=== PATIENT | female | born 1980 | race American Indian/Alaskan Native ===

== ENCOUNTER 2016-09-19 10:34 | Day surgery (SDC) | payer MEDICAID ==
[~2016-09-19 10:34] MED LIST: MARCAINE 0.5% INFILTRATI ONE; NACL 0.9% IR ONE
--- NOTE | 2016-09-19 10:49 | Short Stay Summary ---
Short Stay Documentation Date of service: 09/19/16 Narrative H&P: Pt is a 36yo BF LMP 09/12/16 presents for surgical evaluation and treatment of a right ovarian cyst. Pelvic u/s showed a uterus 10.6 x 5.9 x 4.6cm and a right ovarian bilocular cyst with a solid mass component. She is therefore scheduled for a Laproscopic Right Ovarian Cystectomy. - History Principal diagnosis: Right ovarian cyst H&P: obtained from office Past Medical History: hypertension Past Surgical History: (x2), Other (Laparoscopy) Social history: no significant social history, single - Allergies and Medications Current Medications: Allergies No Known Allergies Allergy (Unverified 09/07/16 10:45) Home Medications Medication Instructions Recorded Confirmed Last Taken Type Lisinopril [Zestril] 20 mg PO QDAY 09/07/16 09/07/16 Unknown History Active Medications Cefazolin Sodium (Ancef/Sterile Water 2 Gm/20 Ml) 2 gm in 20 mls @ 80 mls/hr IV PREOP NR PRN Reason: Protocol Sodium Chloride (Nacl 0.9% 1000 Ml) 1,000 mls @ 125 mls/hr IV DIRECT FRANSISCA - Physical exam General appearance: no acute distress Integumentary: no rash HEENT: Atraumatic Lungs: Clear to auscultation Breasts: deferred Heart: Regular rate Gastrointestinal: normal Female Genitourinary: deferred Extremities: no ischemia Neurological: Normal gait - Brief post op/procedure progress note Date of procedure: 09/19/16 Pre-op diagnosis: Right ovarian cyst Post-op diagnosis: same Procedure: Laproscopic right ovarian cystectomy Anesthesia: GETA Findings: A normal sized uterus with normal left ovary and normal fallopian tubes bilaterally. An enlarged right ovary. Normal appendix. Surgeon: MARVIN HAIRSTON Estimated blood loss: minimal Pathology: list (left ovarian cyst) Specimen disposition: to lab Condition: stable - Hospital course Hospital course: Unremarkable. - Disposition Condition at discharge: Good Disposition: DC-01 TO HOME OR SELFCARE - Discharge Diagnoses (1) Right ovarian cyst Status: Resolved Short Stay Discharge Plan Activity: no restrictions Diet: regular Wound: open to air, keep clean and dry Follow up with: MARVIN HAIRSTON MD [Primary Care Provider] - 14 Days Prescriptions: HYDROcodone/APAP 5-325 [[place] 5/325] 1 each PO Q6HR PRN #20 tablet PRN Reason: Pain
[2016-09-19] MEDS ORDERED: NACL 0.9% 1000 ML 1,000 ML IV SCH (11:00)
[2016-09-19] MEDS ORDERED: ANCEF/STERILE WATER 2 GM/20 ML 2 GM/20 ML SYRINGE IV NR (11:00)
[2016-09-19] MEDS ORDERED: MARCAINE 0.5% 30 ML INFILTRATI ONE (12:00)
[2016-09-19] MEDS ORDERED: PEPCID PO NR (12:02)
[2016-09-19] MEDS ORDERED: VERSED IV NR (12:02)
[2016-09-19] MEDS ORDERED: TRANSDERM-SCOP TD NR (12:02)
[2016-09-19] MEDS ORDERED: ZOFRAN IV PRN (12:03)
--- NOTE | 2016-09-19 12:04 | Anesthesia Consultation ---
Anesthesia Consult and Med Hx Date of service: 09/19/16 - Airway Anesthetic Teeth Evaluation: Good ROM Head & Neck: Adequate Mental/Hyoid Distance: Adequate Mallampati Class: Class II Intubation Access Assessment: Probably Good - Pulmonary Exam CTA: Yes - Cardiac Exam Cardiac Exam: RRR - Pre-Operative Health Status ASA Pre-Surgery Classification: ASA2 Proposed Anesthetic Plan: General - Pulmonary Hx Smoking: Yes (past hx, quit 20 yrs ago) Hx Asthma: No Hx Sleep Apnea: No - Cardiovascular System Hx Hypertension: Yes (x 7 yrs) - Central Nervous System Hx Seizures: Yes (as child, last seizure 2009, no meds) CVA: No Hx Psychiatric Problems: No - Endocrine Hx Renal Disease: No Hx Liver Disease: No Hx Thyroid Disease: No - Hematic Hx Sickle Cell Disease: Yes (trait only) - Other Systems Hx Alcohol Use: Yes (cocktail or wine daily) Hx Substance Use: Yes (marijuana occas) Hx Cancer: No Hx Obesity: Yes - Additional Comments Anesthesia Medical History Comments: PONV, "DIFFICULT TO WAKE UP"
--- NOTE | 2016-09-19 12:04 | Anesthesia Day of Surgery ---
Anesthesia Day of Surgery - Day of Surgery Patient Examined: Yes Patient H&P Reviewed: Yes Patient is NPO: Yes
[2016-09-19] MEDS ORDERED: DIPRIVAN 10 MG/ML IV ONE (12:19)
[2016-09-19] MEDS ORDERED: DILAUDID ONE (12:20)
[2016-09-19] MEDS ORDERED: DECADRON ONE (12:20)
[2016-09-19] MEDS ORDERED: XYLOCAINE MPF 2% ONE (12:20)
[2016-09-19] MEDS ORDERED: ZOFRAN ONE (12:20)
[2016-09-19] MEDS ORDERED: ZEMURON IV ONE (12:21)
[2016-09-19 12:49] LABS: Hematocrit 39.5 % (30.3-42.9); Hemoglobin 13.6 gm/dl (10.1-14.3)
[2016-09-19] MEDS ORDERED: MARCAINE 0.5% INFILTRATI ONE (13:14)
[2016-09-19] MEDS ORDERED: NACL 0.9% IR ONE ×2 (13:14)
--- NOTE | 2016-09-19 14:07 | Operative Report ---
Operative Report Operative Report: Date of procedure: 09/19/2016 Pre-operative diagnosis: Right ovarian cyst Post-operative diagnosis: Same Procedure name(s): Laparoscopic right ovarian cystectomy Surgeon: Pio Martinez MD [place] Operator: None Anesthesia: General endotracheal intubation by Dr. Allen EBL: Minimal less than 10 mL's Findings: A normal uterus with a normal left ovary and tubes bilaterally. An enlarged right ovary. A normal appendix. Procedure: After the patient was correctly identified, she was prepped and draped in usual sterile fashion and placed in dorsolithotomy position. First the bladder was emptied using a straight catheter, A speculum was placed in vaginal vault and the anterior lip of the cervix was grasped using single-tooth tenaculum. The uterine manipulator was then placed and the tenaculum and speculum were removed. Attention was then turned to the abdomen where first a periumbilical incision was made using the skin knife and the Optiview trocar was inserted under direct visualization. After an adequate amount of abdominal insufflation visualization of the pelvic organs found the uterus to be normal, the left ovary was normal, both fallopian tubes are normal, and the right ovary was enlarged. A suprapubic and right lateral incision was made through which 5 mm trochars were placed in order to aid in manipulation of the pelvic organs. The right ovary was grasped and the tripolar cautery was used to remove the cystic portion of the ovary, which was removed using the Endopouch and sent to pathology. At this point the procedure was considered complete. The appendix was visualized and found to be normal. All instruments removed from abdomen, the abdomen was deflated and the periumbilical incision was closed using 0 Vicryl suture in a [id number] configuration of the fascia, followed by 4-0 Monocryl suture in a subcuticular fashion on the skin. The suprapubic and right lateral incisions were closed in similar fashion. Each incision was infiltrated using 0.5% Marcaine solution. The uterine manipulator was removed, the patient tolerated the procedure well was transported to recovery in stable condition.
[2016-09-19] MEDS: DILAUDID IV PRN ×3 (14:10→14:45)
--- NOTE | 2016-09-19 14:18 | Post Anesthesia Evaluation ---
- Post Anesthesia Evaluation Patient Participated: Yes Airway Patent: Yes Stable Respiratory Function: Yes Nausea/Vomiting: No Temp > 96.8F: Yes Pain Manageable: Yes Adequeate Hydration: Yes Anesthesia Complications: No Block Receding Appropriately: Not Applicable Patient on Ventilator: No
[2016-09-19 18:30] VITALS: BP 128/81
== END 2016-09-19 17:30 | disposition home or self-care (01) ==
LOC: OR 10:34
PROVIDERS: ATTEND Obstetrics & Gynecology
DX: N83.01 Follicular cyst of right ovary (principal); I10 Essential (primary) hypertension; F12.90 Cannabis use, unspecified, uncomplicated; E66.9 Obesity, unspecified; Z68.31 Body mass index [BMI] 31.0-31.9, adult; Z98.890 Other specified postprocedural states; Z79.899 Other long term (current) drug therapy; Z87.891 Personal history of nicotine dependence; Z72.89 Other problems related to lifestyle
CPT/HCPCS: 36415; 58662; 81025; 85014; 85018; 88305; J0690; J1100; J1170; J2250; J2405; J2704; J7030